=== PATIENT | male | born 1965 | race Asian ===

== ENCOUNTER 2019-09-29 08:16 | Emergency (ER) | payer SELFPAY ==
[2019-09-29] VITALS (17 sets, daily range): BP systolic 112–144; BP diastolic 72–100; PULSE 68–106; RESP 15–18; TEMP 36.8; O2SAT 97–100; BMI 35.6
--- NOTE | 2019-09-29 08:37 | ED_ITS ---
HPI - Abdominal Pain General Chief Complaint: Abdominal Pain Stated Complaint: nausea/vomiting/dark yellow urine/abd pain x5days Time Seen by Provider: 09/29/19 08:24 Source: patient and dispatcher maintenance service History of Present Illness HPI narrative: Patient denies any nausea vomiting or diarrhea. Complaints abdominal discomfort 7/10 diffusely for the past 5 days. Has noticed dark urine as well as dark stools and change in skin color and eyes. Patient moved here from [facility] 8 years ago. Denies any IV drug use. Is monogamous with 1 girlfriend. Denies any sex with prostitutes. Denies any medical problems no heart attack stroke diabetes. No surgeries on the abdomen. No allergies to medications. Review of Systems Review of Systems Narrative: GENERAL: Denies chills, fatigue, malaise, fever, sweats. HEENT: Denies sinus pain, ear pain, sore throat, difficulty swallowing, dizziness. RESPIRATORY: Denies dyspnea, cough, wheezing, hemoptysis, sputum. CARDIOVASCULAR: Denies chest pain, palpitations, orthopnea, edema, GASTROINTESTINAL: Denies nausea, vomiting, diarrhea, constipation, melena. Complains of abdominal pain : Denies dysuria, frequency, incontinence, hematuria, urinary retention. Complains of dark urine MUSCULOSKELETAL: denies weakness, joint pain, or bony pain SKIN: Denies rash, skin lesions, or other NEUROLOGIC: Denies weakness, headache, numbness, change in speech, confusion, seizures, incoordination. PSYCHIATRIC: No concerning psychosocial issues. ROS Unobtainable: All systems reviewed & are unremarkable except as noted in HPI and below Patient History Social History Smoking Status: Current every day smoker Exam Narrative Exam Narrative: GENERAL: patient appears stated age. Well-nourished, well- developed patient, in no distress, not toxic HEAD: Atraumatic. Normocephalic. EYES: Pupils equal round and reactive. Extraocular motions intact. No scleral icterus. No injection or drainage. Icterus of the eyes ENT: Nose without bleeding, purulent drainage. Throat without erythema, tonsillar hypertrophy or exudate. Airway patent. NECK: Trachea midline. Non tender CARDIOVASCULAR: Regular rate and rhythm without murmurs, gallops, or rubs. RESPIRATORY: Clear to auscultation. Breath sounds equal bilaterally. No wheezes, rales, or rhonchi. GASTROINTESTINAL: Abdomen soft, nondistended. Mild diffuse epigastric periumbilical tenderness but no peritoneal signs, bowel sounds present EXTREMITIES: No edema or joint tenderness. BACK: Nontender without deformity or crepitance. No flank tenderness. NEURO: AOx4. SKIN: No rash or erythema of visible areas, slight jaundice of the skin PSYCH: Not anxious, is cooperative Initial Vital Signs Initial Vital Signs: Vital Signs Temperature 98.3 F 09/29/19 08:45 Pulse Rate 99 H 09/29/19 08:45 Respiratory Rate 16 09/29/19 08:45 Blood Pressure 140/100 H 09/29/19 08:45 Pulse Oximetry 99 09/29/19 08:45 Course Orders Ordered: ED Orders 09/29/19 10:19 US abdomen limited Stat Discontinued Medications Sodium Chloride (Normal Saline 0.9%) 1,000 mls @ 1,000 mls/hr IV BOLUS ONE Stop: 09/29/19 09:29 Last Infusion: 09/29/19 10:18 Dose: 0 mls/hr Documented by: Admin: 09/29/19 09:07 Dose: 1,000 mls/hr Documented by: SGARTIN Ceftriaxone Sodium/Dextrose (Rocephin) 2 gm in 50 mls @ 100 mls/hr IV NOW ONE Stop: 09/29/19 13:44 Last Infusion: 09/29/19 14:08 Dose: 0 mls/hr Documented by: Admin: 09/29/19 13:32 Dose: 100 mls/hr Documented by: DASHOTEM Metronidazole (Flagyl) 500 mg in 100 mls @ 100 mls/hr IV NOW ONE Stop: 09/29/19 14:14 Last Infusion: 09/29/19 14:18 Dose: 100 mls/hr Documented by: Admin: 09/29/19 14:02 Dose: 100 mls/hr Documented by: RMARTIN Morphine Sulfate (Morphine) 4 mg IV NOW ONE Stop: 09/29/19 09:06 Last Admin: 09/29/19 09:17 Dose: 4 mg Documented by: RMARTIN Ondansetron HCl (Zofran) 4 mg IV NOW ONE Stop: 09/29/19 09:06 Last Admin: 09/29/19 09:17 Dose: 4 mg Documented by: FARHAN Reevaluation(s) Reevaluation #1: No new issues. Pain is controlled Time: 13:16 Consultations Consultation #1: Spoke with Dr. Walton, general surgeon here at this Hospital. Patient may need ERCP. Recommends transfer. Consultation #2: Spoke with general surgeon dr raymundo at [facility] and every time, start Rocephin and Flagyl. He will directly admit patient Time: 13:16 Vital Signs Vital signs: Vital Signs - 8 hr 09/29/19 11:00 09/29/19 11:30 09/29/19 11:31 Pulse Rate 71 74 69 Respiratory Rate Blood Pressure 113/72 130/83 Pulse Oximetry 98 98 98 09/29/19 12:00 09/29/19 12:30 09/29/19 13:00 Pulse Rate 77 69 Respiratory Rate Blood Pressure 144/90 H 136/83 Pulse Oximetry 98 97 09/29/19 13:01 09/29/19 13:30 09/29/19 14:00 Pulse Rate 68 68 77 Respiratory Rate Blood Pressure 121/78 112/79 135/86 Pulse Oximetry 98 98 99 09/29/19 14:03 Pulse Rate Respiratory Rate 18 Blood Pressure Pulse Oximetry MDM - Abdominal Pain Differential Diagnosis Differential diagnosis: Likely abdominal pain, pancreatitis and other (Hepatitis) Lab Data Attestation: I reviewed the patient's lab results. Result diagrams: 09/29/19 08:39 09/29/19 08:39 Labs: Lab Results 09/29/19 09/29/19 09/29/19 Range/Units 08:39 08:39 11:28 WBC 9.4 (4.5-11.0) X10^3/uL RBC 5.14 (4.5-5.9) X10^6/uL Hgb 14.5 (13.5-17.5) g/dL Hct 41.8 (41-53) % MCV 81.3 (80-100) fL MCH 28.3 (26-34) PG MCHC 34.8 (30-36) % RDW 13.0 (11.6-14.8) % Plt Count 261 (150-400) X10^3/uL Neut % (Auto) 44.1 L (50-75) % Lymph % (Auto) 41.7 H (25-40) % [place] % (Auto) 8.6 (3-14) % Eos % (Auto) 4.7 H (2-4) % Baso % (Auto) 0.9 (0-2) % Neut # (Auto) 4100 (4521-9015) /uL Lymph # (Auto) 3900 (3807-2311) /uL [place] # (Auto) 800 (0-900) /uL Eos # (Auto) 400 (0-450) /uL Baso # (Auto) 100 (0-100) /uL Sodium 138 (137-145) mmol/L Potassium 3.9 (3.4-5.1) mmol/L Chloride 104 (98-107) mmol/L Carbon Dioxide 26 (22-32) mmol/L BUN 13 (9-20) mg/dL Creatinine 0.86 (0.66-1.25) mg/dL Estimated GFR > 60.0 (>60) mL/min BUN/Creatinine Ratio 15.1 (6-22) Glucose 111 H (70-100) mg/dL Calcium 8.9 (8.4-10.2) mg/dL Total Bilirubin 8.2 H (0.2-1.3) mg/dL Direct Bilirubin 7.0 H (0.0-0.4) mg/dL AST 529 H (17-59) IU/L ALT 694 H (<50) IU/L Alkaline Phosphatase 298 H (38-126) U/L Total Protein 8.2 (6.3-8.2) g/dL Albumin 4.3 (3.5-5.0) g/dL Globulin 3.9 (1.7-4.1) g/dL Albumin/Globulin Ratio 1.1 (1.0-2.8) Lipase 125 (23-300) U/L COVID-19 PCR Negative (Negative) Point of care testing: Urine Dip Bedside Urine Glucose Negative Bedside Urine Bilirubin - Negative Bedside Urine Ketone - Negative Urine Specific Fred 1.005 Bedside Urine Occult Blood - Negative Bedside Urine pH 7.0 Bedside Urine Protein - Negative Bedside Urine Urobilinogen - Negative Bedside Urine Nitrite - Negative Bedside Urine Leukocytes - Negative Esterase Imaging Data CT scan - abdomen/pelvis: Radiologist's Impression: [address] [address] [address] Scan Report Signed Patient: Carrol Otto#: [id number] : 1965Acct:[id number] Age/Sex: 54 / MDate of Service: 09/29/19 Loc: ED Accession Number: [id number] Procedure: CT abdomen pelvis w con Ordering Provider: Alexandro Kim MD PROCEDURE: CT ABDOMEN PELVIS W CON INDICATIONS: IV contrast only/abdominal pain TECHNIQUE: After the administration of intravenous contrast, 5 mm thick sections acquired from the diaphragm to the symphysis. 5 mm coronal and sagittal reformats were acquired. For radiation dose reduction, the following was used: automated exposure control, adjustment of mA and/or kV according to patient size. COMPARISON: None. FINDINGS: Image quality: Excellent. ABDOMEN: Lung bases: Lung bases are clear. Heart size is normal. Solid organs: Liver is normal in size and enhancement. The gallbladder is mildly decompressed. There is questionable tumefactive sludge versus stones or an enhancing mass within the gallbladder fundus (series 2/images 28 and 29). No perichole cystic fluid or gallbladder wall thickening. Biliary system is non dilated. Pancreas enhances normally. Spleen is normal in size and enhancement. No adrenal nodules. Kidneys demonstrate normal size and enhancement, without hydronephrosis. Peritoneum and bowel: Bowel loops demonstrate normal wall thickness and caliber. The appendix is thin walled. There is a 1.0 x 0.6 cm fecalith within the mid appendix. No periappendiceal fat stranding or free fluid. No pneumoperitoneum. Nodes and vessels: No retroperitoneal or mesenteric adenopathy by size criteria. Aorta and inferior vena cava are normal in size. Miscellaneous: No ventral hernias. PELVIS: Genitourinary: Bladder wall thickness is normal. Miscellaneous: No inguinal hernias or adenopathy. Bones: No suspicious bony lesions. No vertebral body compression fractures. IMPRESSION: 1. No acute intra-abdominal findings. 2. Fecalith within the appendix as described above. No findings to suggest acut e appendicitis. 3. Questionable sludge, stones, or enhancing soft tissue within the gallbladder. Right upper quadrant ultrasound could be used to further characterize these findings. Of note, no findings to suggest biliary obstruction or acute cholecystitis. Dictated by: Noris Zuniga M.D. on 09/29/2019 at 9:48 Approved by: Noris Zuniga M.D. on 09/29/2019 at 10:04 US - abdomen: Radiologist's Impression: [address] [address] Ultrasound Report Signed Patient: Carrol Otto#: [id number] : 1965Acct:[id number] Age/Sex: 54 / MDate of Service: 09/29/19 Loc: ED Accession Number: [id number] Procedure: US abdomen limited Ordering Provider: Alexandro Kim MD PROCEDURE: US ABDOMEN LIMITED INDICATIONS: Upper abdominal pain/attention gallbladder TECHNIQUE: Real-time focused scanning was performed of the abdomen, with image documentation. COMPARISON: None. FINDINGS: Liver is normal in size and echotexture. 2 nonmobile stones are seen in dependent portion of gallbladder lumen measures up to 7.1 mm in size near neck of gallbladder. Sludge material is also seen within gallbladder lumen. There is mild gallbladder wall thickening and measures up to 3.2 mm in thickness. Positive sonographic Chamberlain sign is noted during the study. No significant pericholecystic fluid. Common bile duct measures 5.1 mm in diameter and is within normal limits. No intrahepatic biliary ductal dilatation. IMPRESSION: 1. Cholelithiasis with sonographic evidence of acute cholecystitis. 2. No biliary ductal dilatation. Dictated by: Abhijit Jorge M.D. on 09/29/2019 at 11:24 Approved by: Abhijit Jorge M.D. on 09/29/2019 at 11:25 Discharge Plan Departure Patient Disposition: [facility] Clinical Impression: Acute acalculous cholecystitis Discharge Date/Time: 09/29/19 14:29
[2019-09-29 08:45] LABS: Add Manual Diff / Slide Review NO; Basophils Absolute Auto 100 /uL (0-100); Basophils Percent Auto 0.9 % (0-2); Eosinophils Absolute Auto 400 /uL (0-450); Eosinophils Percent Auto 4.7 % (2-4); Hematocrit 41.8 % (41-53); Hemoglobin 14.5 g/dL (13.5-17.5); Lymphocytes Absolute Auto 3900 /uL (1100-4500); Lymphocytes Percent Auto 41.7 % (25-40); Mean Corpuscular HGB Conc 34.8 % (30-36); Mean Corpuscular Hemoglobin 28.3 PG (26-34); Mean Corpuscular Volume 81.3 fL (80-100); Monocytes Absolute Auto 800 /uL (0-900); Monocytes Percent Auto 8.6 % (3-14); Neutrophils Absolute Auto 4100 /uL (1500-7000); Neutrophils Percent Auto 44.1 % (50-75); Platelet Count 261 X10^3/uL (150-400); Red Blood Cell Count 5.14 X10^6/uL (4.5-5.9); White Blood Cell Count 9.4 X10^3/uL (4.5-11.0)
--- NOTE | 2019-09-29 08:55 | PC.NURSE ---
Patient reports abdominal pain that has been going on for a long time. Patient states pain radiates across belly and that it is a 10/10. Patient also states he has had dark urine. Patient's sclera and skin both appear yellow in color. Patient reports his primary language is kimberly and translation phone placed in room.
[2019-09-29 08:56] LABS: Albumin 4.3 g/dL (3.5-5.0); Albumin Globulin Ratio 1.1 (1.0-2.8); Alkaline Phosphatase 298 U/L (38-126); Aspartate Aminotransferase 529 IU/L (17-59); BUN Creatinine Ratio 15.1 (6-22); Bilirubin Total 8.2 mg/dL (0.2-1.3); Blood Urea Nitrogen 13 mg/dL (9-20); Calcium 8.9 mg/dL (8.4-10.2); Carbon Dioxide 26 mmol/L (22-32); Chloride 104 mmol/L (98-107); Estimated Glomerular Filt Rate > 60.0 mL/min (>60); Globulin 3.9 g/dL (1.7-4.1); Glucose 111 mg/dL (70-100); HEMOLYSIS < 15 (0-50); Lipase 125 U/L (23-300); Potassium 3.9 mmol/L (3.4-5.1); Sodium 138 mmol/L (137-145); Total Protein 8.2 g/dL (6.3-8.2)
[2019-09-29 09:04] LABS: Alanine Aminotransferase 694 IU/L (<50)
--- NOTE | 2019-09-29 09:06 | DI.CT.S_ITS ---
PROCEDURE: CT ABDOMEN PELVIS W CON INDICATIONS: IV contrast only/abdominal pain TECHNIQUE: After the administration of intravenous contrast, 5 mm thick sections acquired from the diaphragm to the symphysis. 5 mm coronal and sagittal reformats were acquired. For radiation dose reduction, the following was used: automated exposure control, adjustment of mA and/or kV according to patient size. COMPARISON: None. FINDINGS: Image quality: Excellent. ABDOMEN: Lung bases: Lung bases are clear. Heart size is normal. Solid organs: Liver is normal in size and enhancement. The gallbladder is mildly decompressed. There is questionable tumefactive sludge versus stones or an enhancing mass within the gallbladder fundus (series 2/images 28 and 29). No pericholecystic fluid or gallbladder wall thickening. Biliary system is non dilated. Pancreas enhances normally. Spleen is normal in size and enhancement. No adrenal nodules. Kidneys demonstrate normal size and enhancement, without hydronephrosis. Peritoneum and bowel: Bowel loops demonstrate normal wall thickness and caliber. The appendix is thin walled. There is a 1.0 x 0.6 cm fecalith within the mid appendix. No periappendiceal fat stranding or free fluid. No pneumoperitoneum. Nodes and vessels: No retroperitoneal or mesenteric adenopathy by size criteria. Aorta and inferior vena cava are normal in size. Miscellaneous: No ventral hernias. PELVIS: Genitourinary: Bladder wall thickness is normal. Miscellaneous: No inguinal hernias or adenopathy. Bones: No suspicious bony lesions. No vertebral body compression fractures. IMPRESSION: 1. No acute intra-abdominal findings. 2. Fecalith within the appendix as described above. No findings to suggest acute appendicitis. 3. Questionable sludge, stones, or enhancing soft tissue within the gallbladder. Right upper quadrant ultrasound could be used to further characterize these findings. Of note, no findings to suggest biliary obstruction or acute cholecystitis. Dictated by: Noris Zuniga M.D. on 09/29/2019 at 9:48 Approved by: Noris Zuniga M.D. on 09/29/2019 at 10:04
[2019-09-29] MEDS: SODIUM CHLORIDE 0.9% 1,000 ML 1000 ML IV (09:07)
[2019-09-29] MEDS: ONDANSETRON 4 MG/2 ML INJ IV (09:17)
[2019-09-29] MEDS: MORPHINE 4 MG/ML INJ IV (09:17)
--- NOTE | 2019-09-29 10:19 | DI.US.S_ITS ---
PROCEDURE: US ABDOMEN LIMITED INDICATIONS: Upper abdominal pain/attention gallbladder TECHNIQUE: Real-time focused scanning was performed of the abdomen, with image documentation. COMPARISON: None. FINDINGS: Liver is normal in size and echotexture. 2 nonmobile stones are seen in dependent portion of gallbladder lumen measures up to 7.1 mm in size near neck of gallbladder. Sludge material is also seen within gallbladder lumen. There is mild gallbladder wall thickening and measures up to 3.2 mm in thickness. Positive sonographic Chamberlain sign is noted during the study. No significant pericholecystic fluid. Common bile duct measures 5.1 mm in diameter and is within normal limits. No intrahepatic biliary ductal dilatation. IMPRESSION: 1. Cholelithiasis with sonographic evidence of acute cholecystitis. 2. No biliary ductal dilatation. Dictated by: Abhijit Jorge M.D. on 09/29/2019 at 11:24 Approved by: Abhijit Jorge M.D. on 09/29/2019 at 11:25
[2019-09-29 12:43] LABS: COVID19 -Nasal RAPID Negative (Negative)
[2019-09-29] MEDS: CEFTRIAXONE 2 GM/50 ML FROZ.PIGGY IV (13:32)
[2019-09-29] MEDS: metroNIDAZOLE 500 MG/100 ML PIGGYBACK 100 MG IV (14:02)
--- NOTE | 2019-09-29 14:19 | PC.NURSE ---
S transport arrived to bring patient to [facility]. Flagyl currently running at 100ml/hr, per Dr Kim Flagyl infusion stopped for transportation. Report given to EMS crew and patient notified via professor of english.
--- NOTE | 2019-09-29 14:40 | PC.NURSE ---
The ambulance arrived to transport the patient to [facility]. I called the head cleaning porter to help introduce the ambulance crew and explain where the patient was going again.
--- NOTE | 2019-09-29 14:42 | PC.NURSE ---
I went in to discuss the patients transfer paperwork with him. I used the statistical methods professor phone and they helped explain where the patient was being transferred, and ask him to agree with consent to see GI for surgery at [facility]. The patient accepted, and signed the COBRA form. I gave him a copy of this form.
== END 2019-09-29 14:29 | disposition short-term general hospital (02) ==
PROVIDERS: Emergency Provider Emergency Medicine
DX: K81.0 Acute cholecystitis (principal)
CPT/HCPCS: 36415; 74177; 76705; 80053; 81003; 82248; 83690; 85025; 87635; 96361; 96365; 96367; 96375; 99285; J0696; J2270; J2405; Q9967